=== PATIENT | male | born 1970 | race Caucasian/White ===

== ENCOUNTER → 2020-11-23 | Outpatient (CLI) | payer OTHER ==
[~2020-11-23] MED LIST: ALLERGY RELIEF10 M1 PO; AMOXICILLIN/CLAV PO; ANCEF IV 1000 MG1 GM IV; ANTIVERT 25MG T25 MG PO; ASPIRIN EC81 MG PO; BACLOFEN PO; BACTROBAN OINT22 GM TOP; BUSPAR 10MG10 MG PO; CLARITIN10 MG PO; COLACE 100MG C100 MG PO; ECOTRIN81 MG PO; ELIQUIS 5 MG TAB5 MG PO; FENOFIBRATE160 MG PO; FEOSOL325 MG PO; FLEXERIL 10 MG10 MG PO; GLUCOPHAGE1000 MG PO; HUMALOG 10100 UNITS/ SC; HUMALOG100 UNIT/1 SQ; HYDROCHLOROTHIA25 MG PO; IBUPROFEN800 MG PO; INVANZ 1 GM VIAL1 GM IV; LEVAQUIN750 MG PO; LEVOFLOXACIN750 MG PO; LIORESAL TAB 1010 MG PO; LORTAB 5-325 M1 EACH PO; MECLIZINE HCL25 MG PO; METHOCARBAMOL500 MG PO; MILK OF MA400 MG/5 M PO; MOBIC15 MG PO; NEURONTIN 400400 MG PO; NEURONTIN800 MG PO; NICODERM CQ1 EAC1 TD; NICOTINE PATCH1 EAC2 TOP; NORCO 5-325 TA1 EACH PO; NORCO 7.5-3251 EACH PO; NORVASC10 MG PO; PERCOCET 10-321 EACH PO; PERCOCET 5/325 T1 EA PO; PHENERGAN 25 MG25 M1 PO; PRAVACHOL40 MG PO; PRAVASTATIN SOD20 MG PO; PRINIVIL20 MG PO; PROTONIX 40 MG40 M1 PO; PROTONIX40 MG PO; RANITIDINE PO; ROBAXIN-750750 MG PO; ROCEPHIN IM; SEROQUEL50 MG PO; TRAZODONE HCL100 MG PO; VANCOMYCIN HCL1.5 GM IV; VANCOMYCIN IV; VITAMIN C 500500 MG PO; VITAMIN D3250 MCG PO; ZANAFLEX4 M1 PO; ZANAFLEX4 MG PO; ZANTAC 150 MG150 MG PO; ZESTRIL30 MG PO; ZOFRAN ODT 4 MG4 MG PO; ZOLOFT50 MG PO; [UNRECOGNIZED DRUG - OTHER] PO
== END ==
LOC: NM 09:00
DX: Z01.810 Encounter for preprocedural cardiovascular examination (principal); R06.02 Shortness of breath; R94.39 Abnormal result of other cardiovascular function study
CPT/HCPCS: ECHO; 78452; 93017; 93306; A9502; J2785

== ENCOUNTER → 2020-11-24 | Outpatient (CLI) | payer OTHER | LOC: NM 10:27 → ECHO 13:00 → NM 13:00 | DX: Z01.810 Encounter for preprocedural cardiovascular examination (principal); I51.7 Cardiomegaly ==

== ENCOUNTER 2020-12-03 13:48 | Emergency (ER) | payer OTHER ==
[~2020-12-03 13:48] MED LIST changes: -LEVOFLOXACIN750 MG PO; -MECLIZINE HCL25 MG PO; -PRAVASTATIN SOD20 MG PO; -RANITIDINE PO; -ROCEPHIN IM
[2020-12-03 15:44] LABS: HEMOGLOBIN 14.9 gm/dl (14.0-17.5); RED BLOOD COUNT 5.7 M/UL (4.20-5.50); WHITE BLOOD COUNT 6.8 K/UL (4.5-11.0)
[2020-12-03 16:02] LABS: BUN/CREATININE RATIO 19 (0-10)
[2020-12-03] MEDS ORDERED: LEVOFLOXACIN750 MG PO (16:20)
[2020-12-21] MEDS ORDERED: RANITIDINE PO (06:37)
[2020-12-21] MEDS ORDERED: PRAVASTATIN SOD20 MG PO (06:37)
[2020-12-21] MEDS ORDERED: MECLIZINE HCL25 MG PO (06:38)
[2020-12-21] MEDS ORDERED: ROCEPHIN IM (06:38)
== END 2020-12-03 16:33 | disposition home or self-care (01) ==
LOC: ER1 13:48
PROVIDERS: Physician Assistant
DX: E11.621 Type 2 diabetes mellitus with foot ulcer (principal); L97.429 Non-pressure chronic ulcer of left heel and midfoot with unspecified severity; I10 Essential (primary) hypertension; E78.5 Hyperlipidemia, unspecified; Z90.49 Acquired absence of other specified parts of digestive tract; Z79.899 Other long term (current) drug therapy
CPT/HCPCS: 73630; 80053; 85025; 85652; 86140; 87070; 87077; 87186; 87205; 99283

== ENCOUNTER → 2020-12-21 | Day surgery (SDC) | payer OTHER ==
[~2020-12-21] VITALS: Ht 191.8 cm; Wt 142.0 kg
[~2020-12-21] MED LIST changes: +LEVOFLOXACIN750 MG PO; +MECLIZINE HCL25 MG PO; +PRAVASTATIN SOD20 MG PO; +RANITIDINE PO; +ROCEPHIN IM
[2020-12-21 06:47] LABS: HEMOGLOBIN 14.3 gm/dl (14.0-17.5); RED BLOOD COUNT 5.42 M/UL (4.20-5.50); WHITE BLOOD COUNT 9.1 K/UL (4.5-11.0)
== END | disposition home or self-care (01) ==
LOC: OR 05:58
PROVIDERS: Podiatrist Foot & Ankle Surgery
DX: S91.302A Unspecified open wound, left foot, initial encounter (principal); E11.40 Type 2 diabetes mellitus with diabetic neuropathy, unspecified; I10 Essential (primary) hypertension; E78.5 Hyperlipidemia, unspecified; K21.9 Gastro-esophageal reflux disease without esophagitis; E66.01 Morbid (severe) obesity due to excess calories; F41.9 Anxiety disorder, unspecified; E11.9 Type 2 diabetes mellitus without complications; Z79.4 Long term (current) use of insulin
CPT/HCPCS: 36415; 73630; 80048; 82962; 83036; 85027; 87070; 87205; J0690; J2001; J2250; J2405; J2550; J2704; J2795; J3010; J3370; J7030; J7120; Q4133

== ENCOUNTER 2021-06-30 17:00 | Inpatient (IN) | payer OTHER ==
[~2021-06-30] VITALS: Ht 193 cm; Wt 133.0 kg
[~2021-06-30 17:00] MED LIST changes: -BACLOFEN PO; -NEURONTIN800 MG PO; -PRAVASTATIN SOD20 MG PO; -PRINIVIL20 MG PO
[2021-06-30 17:53] LABS: HEMOGLOBIN 14.7 gm/dl (14.0-17.5); RED BLOOD COUNT 5.41 M/UL (4.20-5.50); WHITE BLOOD COUNT 13.9 K/UL (4.5-11.0)
[2021-07-01 05:02] LABS: HEMOGLOBIN 13.1 gm/dl (14.0-17.5); WHITE BLOOD COUNT 10.8 K/UL (4.5-11.0)
[2021-07-01 05:03] LABS: RED BLOOD COUNT 4.81 M/UL (4.20-5.50)
[2021-07-01] MEDS ORDERED: PRAVASTATIN SOD40 MG PO (06:37)
[2021-07-01] MEDS ORDERED: ZESTRIL 40 MG T40 MG PO (09:04)
[2021-07-01] MEDS ORDERED: HYDROCHLOROTHIA25 MG PO (09:11)
[2021-07-01] MEDS ORDERED: IRON325 M1 PO (12:41)
[2021-07-01] MEDS ORDERED: NEURONTIN800 MG PO (15:43)
[2021-07-01] MEDS ORDERED: MOBIC15 MG PO (15:47)
[2021-07-01] MEDS ORDERED: LIORESAL TAB 1010 MG PO (15:50)
[2021-07-01] MEDS ORDERED: TRAZODONE HCL100 MG PO (19:01)
[2021-07-02 06:33] LABS: HEMOGLOBIN 12.7 gm/dl (14.0-17.5); RED BLOOD COUNT 4.61 M/UL (4.20-5.50)
[2021-07-02 06:39] LABS: WHITE BLOOD COUNT 16.1 K/UL (4.5-11.0)
[2021-07-03 06:18] LABS: RED BLOOD COUNT 4.44 M/UL (4.20-5.50); WHITE BLOOD COUNT 12.4 K/UL (4.5-11.0)
[2021-07-03 06:36] LABS: BUN/CREATININE RATIO 44 (0-10)
[2021-07-04 07:10] LABS: RED BLOOD COUNT 4.43 M/UL (4.20-5.50); WHITE BLOOD COUNT 10.7 K/UL (4.5-11.0)
[2021-07-04 07:35] LABS: BUN/CREATININE RATIO 38 (0-10)
[2021-07-04] MEDS ORDERED: CEFUROXIME500 MG PO (11:31)
[2021-07-04] MEDS ORDERED: DECADRON6 MG PO (11:31)
[2021-07-04] MEDS ORDERED: PROAIR HFA8.5 GM INH (11:31)
[2021-07-04] MEDS ORDERED: IPRAT-ALBUT 0.5-3 ML INH (11:55)
[2021-07-04] MEDS ORDERED: GLIPIZIDE5 MG PO (11:55)
== END 2021-07-04 15:50 | disposition home or self-care (01) | DRG 177 ==
LOC: ER1 17:00 → CDU 19:22 → M/S 19:22
PROVIDERS: Physician Assistant Medical; ADMIT Internal Medicine
PROC: 3E0333Z Introduction of Anti-inflammatory into Peripheral Vein, Percutaneous Approach (ICD-10-PCS; principal; 2021-06-30)
PROC: XW033E5 Introduction of Remdesivir Anti-infective into Peripheral Vein, Percutaneous Approach, New Technology Group 5 (ICD-10-PCS; 2021-06-30)
PROC: 8E0ZXY6 Isolation (ICD-10-PCS; 2021-07-03)
DX: U07.1 COVID-19 (principal); J12.82 Pneumonia due to coronavirus disease 2019; J96.01 Acute respiratory failure with hypoxia; N17.9 Acute kidney failure, unspecified; E87.2 Acidosis; E11.9 Type 2 diabetes mellitus without complications; I10 Essential (primary) hypertension; E87.6 Hypokalemia; Z99.81 Dependence on supplemental oxygen; Z79.82 Long term (current) use of aspirin; Z79.84 Long term (current) use of oral hypoglycemic drugs
CPT/HCPCS: 36600; 71045; 78579; 80048; 80053; 81001; 82436; 82550; 82570; 82803; 82962; 83540; 83550; 83605; 83735; 83880; 83935; 84100; 84133; 84156; 84300; 84484; 85025; 85027; 85652; 86140; 87040; 87086; 89050; 93005; 94640; 94664; 94760; 96374; 99285; A9540; J1100; J1644; J7030; U0002

== ENCOUNTER 2021-11-23 16:18 | Emergency (ER) | payer OTHER ==
[~2021-11-23 16:18] MED LIST changes: +CEFUROXIME500 MG PO; +DECADRON6 MG PO; +GLIPIZIDE5 MG PO; +IPRAT-ALBUT 0.5-3 ML INH; +IRON325 M1 PO; +NEURONTIN800 MG PO; +PRAVASTATIN SOD40 MG PO; +PROAIR HFA8.5 GM INH; +ZESTRIL 40 MG T40 MG PO
[2021-11-23 18:49] LABS: RED BLOOD COUNT 5.93 M/UL (4.20-5.50)
[2021-11-23 19:11] LABS: BUN/CREATININE RATIO 19 (0-10)
== END 2021-11-23 20:03 | disposition home or self-care (01) ==
LOC: ER1 16:18
PROVIDERS: Physician Assistant
DX: M79.672 Pain in left foot (principal); E11.9 Type 2 diabetes mellitus without complications; F17.200 Nicotine dependence, unspecified, uncomplicated
CPT/HCPCS: 73630; 80053; 85025; 85652; 86140; 87040; 99283